=== PATIENT | male | born 1955 | race Caucasian/White ===

== ENCOUNTER → 2017-07-15 | Outpatient (CLI) | payer OTHER ==
--- NOTE | 2017-07-15 14:29 | Diagnostic Imaging Report ---
INDICATION: Right lateral neck fullness. TECHNIQUE: Multiple Realtime grayscale images were obtained over the right neck in various projections. FINDINGS: There is an enlarged lymph node lateral to the submandibular gland on the right measuring 3.7 x 1.4 x 0.7 cm. This has a normal fatty hilus. No other solid or cystic masses are appreciated. IMPRESSION: Enlarged reactive appearing lymph node lateral to the right submandibular gland. Dictated by: Dictated on workstation # [id number]
--- NOTE | 2017-07-16 22:31 | Diagnostic Imaging Report ---
EXAM: Low-dose CT lung cancer screening. TECHNIQUE: This study was performed using low dose CT lung cancer screening protocol. There are no prior exams available for comparison. FINDINGS: There is a 4.5 mm pleural-based nodular density along the periphery of the right upper lung (image 72 of [phone]). There is also 4.3 mm parenchymal density in the periphery of the left upper lung (image [id number]). No other parenchymal nodule is noted. There are mild emphysematous changes involving both lungs and there is scarring in both lung apices, particularly on the right.. There is no sign of failure, pneumonia or of pleural effusion to suggest an acute abnormality. The heart size is within normal limits. There are only sparse coronary artery calcifications evident. The aorta is not abnormally dilated. There is no obvious mediastinal or hilar adenopathy. There are several rounded areas of low density within the liver. The largest of these is in the inferior portion of the right lobe and measures 3.1 x 3.3 cm. I suspect that these findings are cysts. The bone windows show no sign of a fracture or of a destructive lesion. IMPRESSION: 1. There are small nodular densities in both lungs. These are most likely benign. A followup low-dose CT lung cancer screening study in one year would be recommended for continued evaluation. 2. There are emphysematous changes involving both lungs but there is no sign of an acute cardiopulmonary abnormality. 3. The rounded areas of low density within the liver are most likely due to cysts. If further imaging is desired, ultrasound would be recommended. LUNG RADS CATEGORY I Dictated by: Dictated on workstation # [id number]
== END ==
LOC: RAD 12:58
PROVIDERS: ATTEND Family Medicine
DX: R59.0 Localized enlarged lymph nodes (principal); Z12.2 Encounter for screening for malignant neoplasm of respiratory organs; F17.210 Nicotine dependence, cigarettes, uncomplicated
CPT/HCPCS: 76536